=== PATIENT | female | born 1930 | race Caucasian/White ===

== ENCOUNTER 2017-09-22 20:18 | Emergency (ER) | payer OTHER ==
[~2017-09-22] VITALS: Ht 149.9 cm; Wt 69.4 kg
[~2017-09-22 20:18] MED LIST: ASPIR 8181 MG PO; CLOPIDOGREL; EYE VITAMIN-MI1 EACH PO; KEFLEX500 MG PO; TENORMIN; TENORMIN100 MG PO; TRAZODONE HCL50 MG PO
[2017-09-22] MEDS ORDERED: ATENOLOL 50MG T50 MG (20:37)
[2017-09-22 20:45] LABS: URINE CLARITY TURBID; URINE COLOR RED
[2017-09-22 20:52] LABS: URINE BILIRUBIN NEGATIVE (Negative); URINE BLOOD 3+ (Negative); URINE GLUCOSE-RANDOM 1+ (Negative); URINE KETONES NEGATIVE (Negative); URINE LEUKOCYTES-REFLEX NEGATIVE (Negative); URINE NITRITE-REFLEX NEGATIVE (Negative); URINE PROTEIN 3+ (Negative); URINE UROBILINOGEN 0.2 E.U./dl (0.2-1.0)
[2017-09-22 20:54] LABS: BACTERIA-REFLEX 1-9 Few /HPF (None Seen); CASTS None Seen /LPF (None Seen); CRYSTALS None Seen /LPF (None Seen); SQUAMOUS 0-3 Few /LPF (0-3); URINE RBC >20 Many /HPF (0-2); URINE WBC-REFLEX 0-5 Rare /HPF (0-5)
[2017-09-22 21:30] LABS: ABSOLUTE EOSINOPHILS 0.1 thou/uL (0.0-0.7); ABSOLUTE LYMPHOCYTES 1.1 thou/uL (0.8-5.3); ABSOLUTE MONOCYTES 0.5 thou/uL (0.0-1.2); ABSOLUTE NEUTROPHILS 7.7 thou/uL (1.6-8.1); BASOPHILS 0.5 %; EOSINOPHILS 0.5 %; HEMATOCRIT 32.6 % (37.0-47.0); HEMOGLOBIN 10.8 gm/dL (12.0-15.0); LYMPHOCYTES 11.9 %; MCH 29.2 pg (26.0-34.0); MCV 88.5 fL (80.0-100.0); MONOCYTES 4.9 %; MPV 9.9 fl. (7.2-11.1); NUCLEATED RBCS 0 /100WBC; PLATELET COUNT* 159 thou/uL (150-400); POLYS 82.2 %; RBC 3.68 mil/uL (4.20-5.00); RDW-CV 15.1 % (10.5-14.5); WBC 9.4 thou/uL (4.0-11.0)
[2017-09-22 21:42] LABS: CALCIUM 8.4 mg/dL (8.5-10.1); CREATININE 1.4 mg/dL (0.6-1.3); POTASSIUM 4.3 mmol/L (3.5-5.1)
[2017-09-22 21:47] LABS: ALBUMIN 3.1 g/dL (3.4-5.0); TOTAL BILIRUBIN 0.3 mg/dL (<0.1-1.0); TOTAL PROTEIN 6.3 g/dL (6.4-8.2)
[2017-09-23 02:25] VITALS: BP 148/76
== END 2017-09-23 02:25 | disposition short-term general hospital (02) ==
LOC: M.ERS 20:18
PROVIDERS: Nurse Practitioner Family
DX: N93.9 Abnormal uterine and vaginal bleeding, unspecified (principal); I10 Essential (primary) hypertension

== ENCOUNTER 2017-09-28 17:20 | Inpatient (IN) | payer OTHER ==
[~2017-09-28] VITALS: Ht 149.9 cm; Wt 66.9 kg
--- NOTE | ~2017-09-28 | EKG ---
[place] [address] ELECTROCARDIOGRAM REPORT Name: PARIS NIXON Room: [address] ADM IN M.R.#: [id number] Admission: 09/28/17 Attend Phys: Yohan Piña, Discharge: Date of : [birth year] Report #: [id number] THIS REPORT FOR: //name// [facility] Test Date: 2017-09-29 Test Time: 08:22:26 Pat Name: PARIS NIXON Department: Room: [address] Gender: F Chief Radiologic Technologist: DINAH : 1930 Requested By: Bonnie Steele Order Number: [id number] Reading MD: Measurements Intervals [place] Rate: 67 P: 69 [place]: 191 QRS: 31 QRSD: 94 T: 105 QT: 442 QTc: 467 Interpretive Statements Sinus rhythm Inferoposterior infarct, acute (RCA) Probable RV involvement, suggest recording right precordial leads Compared to ECG 04/19/2015 09:08:06 Myocardial infarct finding now present T-wave abnormality no longer present [email or web address] By: 08 1 Epiphany Epiphany, /EPI
--- NOTE | ~2017-09-28 | EKG ---
[place] [address] ELECTROCARDIOGRAM REPORT Name: PARIS NIXON Room: [address] ADM IN M.R.#: [id number] Admission: 09/28/17 Attend Phys: Yohan Piña, Discharge: Date of : [birth year] Report #: [id number] THIS REPORT FOR: //name// [facility] Test Date: 2017-09-30 Test Time: 07:48:55 Pat Name: PARIS NIXON Department: Room: [address] Gender: F Shell Grader: FERMIN : 1930 Requested By: Bonnie Steele Order Number: [id number] Reading MD: Measurements Intervals [place] Rate: 78 P: 73 [place]: 214 QRS: 37 QRSD: 97 T: 100 QT: 398 QTc: 454 Interpretive Statements Sinus rhythm Borderline prolonged [place] interval Inferoposterior infarct, acute (RCA) Lateral leads are also involved Probable RV involvement, suggest recording right precordial leads Compared to ECG 09/29/2017 08:22:26 No significant changes [email or web address] By: 0748 0748 Epiphany Epiphany, /EPI
[~2017-09-28 17:20] MED LIST changes: +ATENOLOL 50MG T50 MG
[2017-09-28 17:26] VITALS: BP 145/41
[2017-09-28 17:48] LABS: ABSOLUTE BASOPHILS 0.1 thou/uL (0.0-0.2); ABSOLUTE LYMPHOCYTES 1.6 thou/uL (0.8-5.3); ABSOLUTE MONOCYTES 0.8 thou/uL (0.0-1.2); BASOPHILS 0.6 %; EOSINOPHILS 0.1 %; HEMATOCRIT 25.3 % (37.0-47.0); HEMOGLOBIN 8.4 gm/dL (12.0-15.0); LYMPHOCYTES 16.6 %; MCHC 33.3 g/dL (28.0-37.0); MONOCYTES 8.6 %; MPV 10.4 fl. (7.2-11.1); NUCLEATED RBCS 0 /100WBC; PLATELET COUNT* 172 thou/uL (150-400); POLYS 74.1 %; RBC 2.81 mil/uL (4.20-5.00); RDW-CV 15.2 % (10.5-14.5); WBC 9.4 thou/uL (4.0-11.0)
[2017-09-28 18:05] LABS: ALBUMIN 3.3 g/dL (3.4-5.0); ALKALINE PHOSPHATASE 63 U/L (46-116); ANION GAP 9 mmol/L (7-16); APTT 29.9 Seconds (25.0-31.3); CHLORIDE 96 mmol/L (98-107); CHOLESTEROL 146 mg/dL (<200); CO2 23 mmol/L (21-32); CREATININE 1.2 mg/dL (0.6-1.3); GLUCOSE 116 mg/dL (70-99); HDL CHOLESTEROL 49 mg/dL (>40); INR 1.3; LDL CHOLESTEROL 74 mg/dL (<100); MAGNESIUM 1.9 mg/dL (1.8-2.4); POTASSIUM 4.4 mmol/L (3.5-5.1); PROTIME 12.9 Seconds (9.20-11.50); SERUM ASSESSMENT Clear; SGOT 206 U/L (15-37); SGPT 30 U/L (30-65); SODIUM 128 mmol/L (136-145); TOTAL BILIRUBIN 0.3 mg/dL (<0.1-1.0); TOTAL PROTEIN 6.8 g/dL (6.4-8.2); TRIGLYCERIDE 116 mg/dL (<150); VLDL 23 mg/dL (<40)
[2017-09-28 18:06] LABS: TROPONIN-I LEVEL 27.35 ng/mL (<0.06)
[2017-09-28 18:18] LABS: BUN 18 mg/dL (7-18)
[2017-09-28 19:50] VITALS: BP 133/33
[2017-09-28 20:00] VITALS: BP 145/61; BP 157/51
[2017-09-28 21:00] VITALS: BP 145/61
[2017-09-28 22:00] VITALS: BP 162/56
[2017-09-28 23:30] VITALS: BP 152/51
[2017-09-29] VITALS (15 sets, daily range): BP systolic 110–164; BP diastolic 41–64
--- NOTE | 2017-09-29 00:20 | CON ---
[address] [address] CONSULTATION Name: TIFFANIPARIS Fidencio Room: [address] IN M.R.#: [id number] Admission: 09/28/17 Attend Phys: Yohan Piña, Discharge: Date of : [birth year] Report #: [id number] THIS REPORT FOR: //name// CC: OLIVIA physician/PCP Yohan Piña DATE OF SERVICE: 09/28/2017 TYPE OF REPORT: Cardiology consultation. INDICATION: Chest pain. HISTORY OF PRESENT ILLNESS: This is an 87-year-old female presenting with chest pains and dysarthria. She was recently evaluated in the ER for heavy vaginal bleeding in the end of August, transferred to [facility]. 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 She was found to have a mass but a biopsy was not performed. The patient lives alone and reports having chest pain starting early this morning, greater than 10 hours prior to presentation to the ER. Her speech is difficult, may be having underlying stroke at this time. She can respond to questions, but some of her words are difficult to understand. She is oriented to place but not year. The ECG reveals an inferior wall FL with Q-waves evident. The initial troponin is positive, suggestive for an FL greater than 6 hours of onset. There is no history of fever, chills or cough. PAST MEDICAL HISTORY: 1. History of hypertension. 2. Prior admission for altered mental status. 3. 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 ALLERGIES: None. MEDICATIONS: Include aspirin and atenolol. SOCIAL HISTORY: Negative for tobacco use. FAMILY HISTORY: Negative for premature CAD. REVIEW OF SYSTEMS: A full 10-point review of systems performed. Only the pertinent positives and negatives are described in the HPI. PHYSICAL EXAMINATION: VITAL SIGNS: Blood pressure is 145/80 and heart rate is 65 beats per minute. GENERAL APPEARANCE: An elderly appearing female, in no acute distress. HEAD AND EYES: Normocephalic. Sclerae [place] [address] CONSULTATION Name: PARIS NIXON Fidencio Room: [address] IN [facility]#: [id number] Admission: 09/28/17 Attend Phys: Yohan Piña, Discharge: Date of : [birth year] Report #: [id number] ENT: Oral mucosa moist. NECK: Supple. LUNGS: Clear to auscultation. CARDIAC: Regular rate and rhythm. S1 and S2 positive. ABDOMEN: Soft and nontender. EXTREMITIES: No cyanosis. Positive edema. RADIOLOGICAL DATA: ECG reveals sinus rhythm, ST elevation in the inferior lateral leads. LABORATORY VALUES: Sodium is 128 and creatinine is 1.2. Troponin is 27.35. White count is 9.4 and hemoglobin is 8.4. ASSESSMENT AND PLAN: 1. Inferior wall myocardial infarction, onset is unclear, probably more than 6 hours from onset. The patient has comorbidities including age, active vaginal bleed apparently due to metastatic peritoneal carcinoma. Also, has evidence for ongoing cerebrovascular accident at this time. Given her high risk presentation, the risk-benefit ratio to proceed with a cardiac catheterization is not in favor. This was discussed with the patient and her son who are in agreement. The plan is to continue with conservative therapy. 2. Cerebrovascular accident, exhibiting dysarthria and complains of weakness of the legs. Obtain a neuro evaluation. 3. Hypertension, hold on the beta anshul at this time. The heart rate is on the low side. 4. Anemia/vaginal bleed, check serial hemoglobin and hematocrit. Admit to Intensive Care Unit. 5. The patient is do not resuscitate. <ELECTRONICALLY SIGNED> By: Eloy Thacker MD 09/29/17 0020 1847 [id number] Thacker MD /nt
[2017-09-29 04:53] LABS: CREATININE 1.2 mg/dL (0.6-1.3)
[2017-09-29 05:23] LABS: TROPONIN-I LEVEL 23.55 ng/mL (<0.06)
[2017-09-29 06:41] LABS: HEMATOCRIT 24.6 % (37.0-47.0); HEMOGLOBIN 8.2 gm/dL (12.0-15.0); MCH 29.9 pg (26.0-34.0); MCHC 33.3 g/dL (28.0-37.0); MCV 89.9 fL (80.0-100.0); MPV 10.2 fl. (7.2-11.1); RBC 2.73 mil/uL (4.20-5.00); WBC 9.6 thou/uL (4.0-11.0)
--- NOTE | 2017-09-29 10:32 | EKG ---
[place] [address] ELECTROCARDIOGRAM REPORT Name: PARIS NIXON Room: [address] ADM IN M.R.#: [id number] Admission: 09/28/17 Attend Phys: Yohan Piña, Discharge: Date of : [birth year] Report #: [id number] THIS REPORT FOR: //name// [facility] ED Test Date: 2017-09-28 Test Time: 17:30:27 Pat Name: PARIS NIXON Department: Room: [address] Gender: F Streets And Buildings Decorator: MS : 1930 Requested By: Juancho Golden Order Number: [id number] Reading MD: Thomas Steele Measurements Intervals [place] Rate: 64 P: 97 [place]: 178 QRS: 37 QRSD: 96 T: 105 QT: 453 QTc: 468 Interpretive Statements Sinus rhythm Inferoposterior infarct, acute (RCA) Anterolateral infarct, acute Probable RV involvement, suggest recording right precordial leads Baseline wander in lead(s) II,III,aVF Compared to ECG 04/19/2015 09:08:06 Myocardial infarct finding now present T-wave abnormality no longer present Electronically Signed On 09-29-2017 10:32:27 CDT by Thomas Steele [email or web address] <ELECTRONICALLY SIGNED> By: Bonnie Steele MD, [facility] 09/29/17 1032 1730 1730 Bonnie Steele MD, [facility] /EPI
--- NOTE | 2017-09-29 10:33 | EKG ---
[place] [address] ELECTROCARDIOGRAM REPORT Name: PARIS NIXON Fidencio Room: [address] ADM IN M.R.#: [id number] Admission: 09/28/17 Attend Phys: Yohan Piña, Discharge: Date of : [birth year] Report #: [id number] THIS REPORT FOR: //name// [facility] ED Test Date: 2017-09-28 Test Time: 17:42:09 Pat Name: PARIS NIXON Department: Room: [facility] Gender: F Director Community Health Nursing: SB : 1930 Requested By: Juancho Golden Order Number: [id number] MD: Thomas Steele Measurements Intervals [place] Rate: 62 P: 17 [place]: 175 QRS: 23 QRSD: 96 T: 110 QT: 463 QTc: 471 Interpretive Statements Sinus rhythm Inferior infarct, acute (RCA) Borderline ST elevation, anterior leads Lateral leads are also involved Probable RV involvement, suggest recording right precordial leads Baseline wander in lead(s) II,III,aVR,aVF Compared to ECG 04/19/2015 09:08:06 Myocardial infarct finding now present ST (T wave) deviation now present T-wave abnormality no longer present Electronically Signed On 09-29-2017 10:33:28 CDT by Thomas Steele [email or web address] <ELECTRONICALLY SIGNED> By: Bonnie Steele MD, [facility] 09/29/17 1033 41 174 Bonnie Steele MD, [facility] /EPI
--- NOTE | 2017-09-29 10:39 | EKG ---
[place] [address] ELECTROCARDIOGRAM REPORT Name: PARIS NIXON Room: [address] ADM IN M.R.#: [id number] Admission: 09/28/17 Attend Phys: Yohan Piña, Discharge: Date of : [birth year] Report #: [id number] THIS REPORT FOR: //name// [facility] Test Date: 2017-09-29 Test Time: 08:22:26 Pat Name: PARIS NIXON Department: Room: [address] Gender: F Program Manufacturing Leader: : 1930 Requested By: Bonnie Steele Order Number: [id number] Reading MD: Thomas Steele Measurements Intervals [place] Rate: 67 P: 69 [place]: 191 QRS: 31 QRSD: 94 T: 105 QT: 442 QTc: 467 Interpretive Statements Sinus rhythm Inferoposterior infarct, acute (RCA) Probable RV involvement, suggest recording right precordial leads Compared to ECG 04/19/2015 09:08:06 Myocardial infarct finding now present T-wave abnormality no longer present Electronically Signed On 09-29-2017 10:39:33 CDT by Thomas Steele [email or web address] <ELECTRONICALLY SIGNED> By: Bonnie Steele MD, [facility] 09/29/17 1039 1 1 Bonnie Steele MD, [facility] /EPI
[2017-09-29 17:39] LABS: HEMOGLOBIN 9.1 gm/dL (12.0-15.0)
[2017-09-30] VITALS: BP 119/46
[2017-09-30 08:00] VITALS: BP 95/29
[2017-09-30 08:30] VITALS: BP 111/57
--- NOTE | 2017-09-30 08:35 | CON ---
[address] [address] CONSULTATION Name: PARIS NIXON Room: [address] IN M.R.#: [id number] Admission: 09/28/17 Attend Phys: Yohan Piña, Discharge: Date of : [birth year] Report #: [id number] THIS REPORT FOR: //name// CC: OLIVIA physician/PCP Yohan Piña DATE OF SERVICE: 09/29/2017 HISTORY OF PRESENT ILLNESS: This is an 87-year-old female patient who was evaluated by me for an episode of speech difficulty. This patient has a very involved history. I talked to the emergency room physician and the stoker installer and she was here for heavy blood loss last month and was found to have some peritoneal cancer. Her speech was affected when I saw her and she said the speech was not affected now. She was very restless. She was short of breath. She had difficult time sitting still. REVIEW OF SYSTEMS: I tried to carry out the 14-point review of system. She was not very cooperative. She has STEMI. She has some altered mental status, but she is better from that. Cardiology has seen it and they have decided about conservative management because of her general condition. She has macular degeneration. She has hypertension. She had a repaired diaphragm. This was a 14-point review of system I could get. PAST MEDICAL HISTORY: Negative for any stroke, the best I understand. She does have a history of heavy bleeding. FAMILY HISTORY: Negative for early age stroke. SOCIAL HISTORY: She does not smoke or drink any alcohol. PHYSICAL EXAMINATION: NEUROLOGY: The patient's examination is very limited. She was very restless. She will not sit still. She was constantly moving. She said she is short of breath. She was very anxious. She did not allow for examination, but cranial nerve examination appeared nonfocal. She was moving both of her extremities. She is moderately built individual. She does not have any dysmorphic features of eyes, ears, and face. Her vision and hearing looks adequate. VITAL SIGNS: Blood pressure was 129/68, pulse is 84, AND temperature is 98. IMAGING DATA: She did have a CT scan of the head on admission, which did not show any acute changes. Her sodium was only 129 and it has been low since she has been here. IMPRESSION: Very difficult to form in this patient because she did not cooperate, but she clearly told me that she does not want further workup or cannot do the further workup like MRI etc. After talking to [place], [place] [address] CONSULTATION Name: PARIS NIXON Room: [address] IN [facility]#: [id number] Admission: 09/28/17 Attend Phys: Yohan Piña, Discharge: Date of : [birth year] Report #: [id number] for carotid Doppler, which I ordered for tomorrow, but she will not do the MRI or any other testing. RECOMMENDATIONS: We will try to see her back again tomorrow to see if she is any more cooperative. I think with all the condition, if she wants conservative or comfort care, that may not be a bad idea on her. I will ask Dr. Costa to follow up tomorrow and look at her carotid, but I am not sure how much she will allow to do and how much we can do on her. Thank you very much for the . <ELECTRONICALLY SIGNED> By: Bakari Downing MD 09/30/17 0835 1855 0438Bakari Downing MD /nt
[2017-09-30 09:00] VITALS: BP 104/41
--- NOTE | 2017-09-30 12:53 | 2DMMODE ---
[place] [address] 2 D/M-MODE ECHOCARDIOGRAM Name: PARIS NIXON Room: [address] IN [facility]#: [id number] Admission: 09/28/17 Attend Phys: Yohan Fernandez Discharge: Date of : [birth year] Date of Service: 09/30/17 1253 Report #: [id number] THIS REPORT FOR: //name// APPROVED REPORT Study performed: 09/30/2017 09:35:17 EXAM: Comprehensive 2D, Doppler, and color-flow Echocardiogram Patient Location: In-Patient Room #: 002 Status: routine BSA: 1.62 HR: 85 bpm BP: 104/41 mmHg Rhythm: NSR Other Information Study Quality: Good Indications Acute OH 2D Dimensions LVEF(%): 57.50 (>50%) IVSd: 7.73 (7-11mm) LVOT Diam: 20.77 (18-24mm) LVDd: 53.56 mm PWd: 8.71 (7-11mm) Ascending Ao: 30.04 (22-36mm) LVDs: 37.21 (25-40mm) Aortic Root: 35.20 mm Huffman's LVEF: 57.50 % Volumes Left Atrial Volume (Systole) LA ESV Index: 43.10 mL/m2 Aortic Valve AoV Peak Carter.: 1.11 m/s AO Peak Gr.: 4.93 mmHg LVOT Max P.85 mmHg AO Mean Gr.: 2.87 mmHg LVOT Mean P.69 mmHg LVOT Max V: 0.98 m/s AO V2 VTI: 21.86 cm LVOT Mean V: 0.59 m/s HAYDEE (VTI): 3.15 cm2 LVOT V1 VTI: 20.30 cm Mitral Valve E/A Ratio: 0.84 [place] [address] 2 D/M-MODE ECHOCARDIOGRAM Name: PARIS NIXON Room: [address] IN ..#: [id number] Admission: 09/28/17 Attend Phys: Yohan Fernandez Discharge: Date of : [birth year] Date of Service: 09/30/17 1253 Report #: [id number] MV Decel. Time: 174.04 ms MV E Max Carter.: 1.12 m/s MV PHT: 50.47 ms MVA (PHT): 4.36 cm2 TDI E/Lateral E': 16.00 E/Medial E': 18.67 Medial E' Carter.: 0.06 m/s Lateral E' Carter.: 0.07 m/s Pulmonary Valve PV Peak Carter.: 0.83 m/s PV Peak Gr.: 2.74 mmHg Tricuspid Valve RAP Estimate: 5.00 mmHg TR Peak Gr.: 24.38 mmHg RVSP: 29.38 mmHg PA Pressure: 29.38 mmHg Left Ventricle The left ventricle is normal size. Regional wall motion abnormalities are noted with severe hypokinesis to akinesis of the basilar 2/3 of the inferior wall There is normal left ventricular wall thickness. Left ventricular systolic function is mild to moderately decreased. LVEF is 45%. Grade I - abnormal relaxation pattern. Right Ventricle The right ventricle is normal size. The right ventricular systolic function is normal. Atria Left atrium is mildly dilated. The right atrium size is normal. Aortic Valve Mild aortic valve sclerosis. Mild aortic regurgitation. There is no aortic valvular stenosis. Mitral Valve There is mitral annular calcification. Mild mitral regurgitation. No evidence of mitral valve stenosis. Tricuspid Valve The tricuspid valve is normal in structure. Trace tricuspid regurgitation. No pulmonary [place] [address] 2 D/M-MODE ECHOCARDIOGRAM Name: PARIS NIXON Room: [address]#: [id number] Admission: 09/28/17 Attend Phys: Yohan Fernandez Discharge: Date of : [birth year] Date of Service: 09/30/17 1253 Report #: [id number] The pulmonary valve is normal in structure. Trace pulmonic regurgitation. Great Vessels The aortic root is normal in size. IVC is normal in size and collapses with >50% inspiration Pericardium There is no pericardial effusion. <Conclusion> The left ventricle is normal size. There is normal left ventricular wall thickness. Left ventricular systolic function is mild to moderately decreased. LVEF is 45%. Grade I - abnormal relaxation pattern. The right ventricle is normal size. Left atrium is mildly dilated. Mild aortic valve sclerosis. Mild aortic regurgitation. There is no aortic valvular stenosis. There is mitral annular calcification. Mild mitral regurgitation. No evidence of mitral valve stenosis. The tricuspid valve is normal in structure. IVC is normal in size and collapses with >50% inspiration There is no pericardial effusion. Regional wall motion abnormalities are noted with severe hypokinesis to akinesis of the basilar 2/3 of the inferior wall <ELECTRONICALLY SIGNED> By: Kirt Wood MD, FACC 09/30/17 1253 1253 1253 Kirt Wood MD, FACC /INF
--- NOTE | 2017-09-30 14:46 | EKG ---
[place] [address] ELECTROCARDIOGRAM REPORT Name: PARIS NIXON Room: [address] ADM IN M.R.#: [id number] Admission: 09/28/17 Attend Phys: Yohan Piña, Discharge: Date of : [birth year] Report #: [id number] THIS REPORT FOR: //name// [facility] Test Date: 2017-09-30 Test Time: 07:48:55 Pat Name: PARIS NIXON Department: Room: [address] Gender: F Supervisor Estimator And Drafter: FERMIN : 1930 Requested By: Bonnie Steele Order Number: [id number] Thuy MD: Kirt Wood Measurements Intervals [place] Rate: 78 P: 73 [place]: 214 QRS: 37 QRSD: 97 T: 100 QT: 398 QTc: 454 Interpretive Statements Sinus rhythm Borderline prolonged [place] interval Inferoposterior infarct, acute (RCA) Lateral leads are also involved Probable RV involvement, suggest recording right precordial leads Compared to ECG 09/29/2017 08:22:26 No significant changes Electronically Signed On 09-30-2017 14:46:09 CDT by Kirt Wood [email or web address] <ELECTRONICALLY SIGNED> By: Kirt Wood MD, [facility] 09/30/17 1446 0748 0748 Kirt Wood MD, [facility] /EPI
== END 2017-09-30 18:28 | DRG 64 ==
LOC: M.ERS 17:20 → M.ICU 19:01 → M.TBA-ER 19:01 → M.ICU 19:52 → M.3W 09-30 15:37
PROVIDERS: Emergency Medicine Emergency Medical Services; Internal Medicine; ADMIT Family Medicine
PROC: 30233N1 Transfusion of Nonautologous Red Blood Cells into Peripheral Vein, Percutaneous Approach (ICD-10-PCS; principal; 2017-09-29)
DX: I63.9 Cerebral infarction, unspecified (principal); I21.19 ST elevation (STEMI) myocardial infarction involving other coronary artery of inferior wall; D62 Acute posthemorrhagic anemia; E87.1 Hypo-osmolality and hyponatremia; Z51.5 Encounter for palliative care; I10 Essential (primary) hypertension; Z60.2 Problems related to living alone; D64.9 Anemia, unspecified; Z66 Do not resuscitate; R47.1 Dysarthria and anarthria; F41.9 Anxiety disorder, unspecified; N95.9 Unspecified menopausal and perimenopausal disorder; I20.9 Angina pectoris, unspecified; Z79.899 Other long term (current) drug therapy; Z79.82 Long term (current) use of aspirin; Z82.49 Family history of ischemic heart disease and other diseases of the circulatory system